=== PATIENT | female | born 1975 | race Caucasian/White ===

== ENCOUNTER 2024-12-10 21:52 | Emergency (ER) | payer BC ==
[~2024-12-10] VITALS: Ht 167.6 cm; Wt 80.7 kg
[2024-12-10] MEDS ORDERED: CEFTRIAXONE 1GM BAG (ER ONLY) 50 ML IV ONE (23:02)
[2024-12-10] MEDS ORDERED: ONDANSETRON HCL/PF 4 MG/2 ML VIAL ONE (23:02)
[2024-12-10] MEDS ORDERED: MORPHINE SULFATE INJ 4 MG/ML DISP.SYRIN ONE (23:03)
[2024-12-10] MEDS: IV NS 0.9% 1,000 ML BAG IV ONE (23:14)
[2024-12-10] MEDS: CEFTRIAXONE 1GM BAG (ER ONLY) 1 GM/50 ML PIGGYBACK IV ONE (23:15)
[2024-12-10] MEDS: ONDANSETRON HCL/PF 4 MG/2 ML VIAL IVP ONE (23:15)
[2024-12-10] MEDS: MORPHINE SULFATE INJ 2 MG/ML DISP.SYRIN IV ONE (23:15)
[2024-12-10 23:17] LABS: PLATELET COUNT (AUTO) 243 K/uL (150-450); RED BLOOD CELL COUNT(AUTO) 5.04 MIL/uL (4.0-5.2); RED CELL DISTRIBUTION WIDTH 15.4 % (11.5-15.0); WHITE BLOOD COUNT (AUTO) 13.3 K/uL (4.3-11.0)
[2024-12-10 23:37] LABS: INR 1.12 (0.91-1.10)
[2024-12-10 23:38] LABS: CALCIUM, SERUM 8.9 mg/dL (8.5-10.1); CREATININE 1.2 mg/dL (0.6-1.3); SODIUM SERUM 135 mmol/L (136-145); UREA NITROGEN, BLOOD 12 mg/dL (7-18)
[2024-12-10 23:43] LABS: ASPARTATE AMINOTRANSFERASE 136 U/L (15-37); TOTAL PROTEIN, SERUM 7.5 g/dL (6.4-8.2)
[2024-12-10 23:47] LABS: LACTIC ACID 1.9 mmol/L (0.4-2.0)
[2024-12-10 23:57] LABS: APPEARANCE,URINE CLEAR (CLEAR); BLOOD, URINE 3+ Ery/uL (NEGATIVE); LEUKOCYTE ESTERASE ,URINE NEGATIVE (NEGATIVE); NITRITE, URINE NEGATIVE (NEGATIVE); PREGNANCY TEST URINE QUAL NEGATIVE (NEGATIVE); UGLUCOSE NEGATIVE (NEGATIVE)
[2024-12-10 23:58] LABS: ADD URINE CULTURE NO; SQUAMOUS EPITHELIAL CELL,UR Few /HPF (None Seen)
[2024-12-11 01:22] VITALS: BP 107/59; TEMP 98.6; O2SAT 98
== END 2024-12-11 01:23 | disposition home or self-care (01) ==
LOC: ER 22:01
DX: K76.9 Liver disease, unspecified (principal); R74.01 Elevation of levels of liver transaminase levels; R10.9 Unspecified abdominal pain; Z60.2 Problems related to living alone
CPT/HCPCS: 99285; 74176; 96365; 71045; 96361; 96375; 93005; 84145; 85025; 80048; 87040 ×2; 87086; 83605; 80076; 84703; 81001; 36415; 84484; 85730; J2405; J7040; J0696; J2270

== ENCOUNTER 2025-01-22 19:18 | Inpatient (IN) | payer BC ==
[~2025-01-22] VITALS: Ht 167.6 cm; Wt 82.6 kg
[2025-01-22] MEDS ORDERED: ACETAMINOPHEN ES 500 MG TABLET ONE ×2 (20:14→20:17)
[2025-01-22] MEDS ORDERED: CEFEPIME 1 GM VIAL ONE (20:14)
[2025-01-22] MEDS: IV NS 0.9% 1,000 ML BAG IV ONE (20:20)
[2025-01-22] MEDS: ACETAMINOPHEN ES 500 MG TABLET PO ONE (20:20)
[2025-01-22 20:21] LABS: PLATELET COUNT (AUTO) 331 K/uL (150-450); RED BLOOD CELL COUNT(AUTO) 5.06 MIL/uL (4.0-5.2); RED CELL DISTRIBUTION WIDTH 16.0 % (11.5-15.0); WHITE BLOOD COUNT (AUTO) 17.2 K/uL (4.3-11.0)
[2025-01-22] MEDS: CEFEPIME 1 GM in IV D5W 50 ML IV ONE (20:25)
[2025-01-22 20:28] LABS: APPEARANCE,URINE SLIGHTLY CLOUDY (CLEAR); BLOOD, URINE 2+ Ery/uL (NEGATIVE); LEUKOCYTE ESTERASE ,URINE NEGATIVE (NEGATIVE); NITRITE, URINE NEGATIVE (NEGATIVE); UGLUCOSE NEGATIVE (NEGATIVE)
[2025-01-22 20:36] LABS: CALCIUM, SERUM 9.1 mg/dL (8.5-10.1); CREATININE 1.0 mg/dL (0.6-1.3); SODIUM SERUM 135 mmol/L (136-145); UREA NITROGEN, BLOOD 14 mg/dL (7-18)
[2025-01-22 20:37] LABS: INR 1.03 (0.91-1.10)
[2025-01-22 20:40] LABS: ASPARTATE AMINOTRANSFERASE 18 U/L (15-37); TOTAL PROTEIN, SERUM 7.5 g/dL (6.4-8.2)
[2025-01-22 20:42] LABS: ADD URINE CULTURE NO; SQUAMOUS EPITHELIAL CELL,UR Moderate /HPF (None Seen)
[2025-01-22 20:44] LABS: LACTIC ACID 2.5 mmol/L (0.4-2.0)
[2025-01-22 22:00] VITALS: BP 94/61; TEMP 98.1; O2SAT 97
[2025-01-22] MEDS ORDERED: TEMAZEPAM 15 MG CAPSULE PO PRN (22:30)
[2025-01-22] MEDS ORDERED: HYDROCODONE/APAP 5/325MG TABLET PO PRN (22:30)
[2025-01-22] MEDS ORDERED: MAG HYDROX/AL HYDROX/SIMETH 30 ML UDC PO PRN (22:30)
[2025-01-22] MEDS ORDERED: DEXTROSE 50%-WATER 50 ML DISP.SYRIN IV PRN (22:30)
[2025-01-22] MEDS ORDERED: Z GUARD REMEDY 4 OZ OINT TP PRN (22:30)
[2025-01-22] MEDS ORDERED: ONDANSETRON HCL/PF 4 MG/2 ML VIAL IVP PRN (22:30)
[2025-01-22] MEDS ORDERED: MAGNESIUM HYDROXIDE 30 ML UDC PO PRN (22:30)
[2025-01-22] MEDS ORDERED: ACETAMINOPHEN 325 MG TABLET PO PRN (22:30)
[2025-01-23] MEDS: IV NS 0.9% 1,000 ML IV PRN (03:50)
[2025-01-23 04:00] VITALS: BP 105/61; TEMP 99; O2SAT 98
[2025-01-23 07:07] LABS: PLATELET COUNT (AUTO) 285 K/uL (150-450); RED BLOOD CELL COUNT(AUTO) 4.18 MIL/uL (4.0-5.2); RED CELL DISTRIBUTION WIDTH 15.7 % (11.5-15.0); WHITE BLOOD COUNT (AUTO) 12.6 K/uL (4.3-11.0)
[2025-01-23 07:30] LABS: CALCIUM, SERUM 8.2 mg/dL (8.5-10.1); CREATININE 0.8 mg/dL (0.6-1.3); PHOSPHORUS 3.1 mg/dL (2.5-4.9); SODIUM SERUM 138.0 mmol/L (136-145); UREA NITROGEN, BLOOD 8.0 mg/dL (7-18)
[2025-01-23] MEDS: BLOOD SUGAR DIAGNOSTIC 1 EACH STRIP IN SCH (07:40)
[2025-01-23 08:00] VITALS: BP 93/62; TEMP 98.4; O2SAT 96
[2025-01-23] MEDS: CEFEPIME 1 GM in IV D5W 50 ML IV SCH (08:31)
[2025-01-23] MEDS: PANTOPRAZOLE 40 MG TABLET.DR PO SCH (08:31)
[2025-01-23] MEDS ORDERED: MOUNJARO SQ (08:33)
[2025-01-23] MEDS ORDERED: ATOR40TA PO (08:33)
[2025-01-23] MEDS ORDERED: METF-442 PO (08:33)
[2025-01-23] MEDS: MAGNESIUM OXIDE 400 MG TABLET PO ONE (09:51)
[2025-01-23 16:00] VITALS: BP 101/66; TEMP 97.3; O2SAT 96
[2025-01-23 20:00] VITALS: BP 105/66; TEMP 98.4; O2SAT 98
[2025-01-24 04:00] VITALS: BP 96/70; TEMP 98.1; O2SAT 98
[2025-01-24 07:09] LABS: PLATELET COUNT (AUTO) 244 K/uL (150-450); RED BLOOD CELL COUNT(AUTO) 3.85 MIL/uL (4.0-5.2); RED CELL DISTRIBUTION WIDTH 15.4 % (11.5-15.0); WHITE BLOOD COUNT (AUTO) 5.0 K/uL (4.3-11.0)
[2025-01-24 07:35] LABS: CALCIUM, SERUM 8.1 mg/dL (8.5-10.1); CREATININE 0.8 mg/dL (0.6-1.3); SODIUM SERUM 143.0 mmol/L (136-145); UREA NITROGEN, BLOOD 7.0 mg/dL (7-18)
[2025-01-24 07:43] LABS: LACTIC ACID 0.7 mmol/L (0.4-2.0)
[2025-01-24 07:54] LABS: PHOSPHORUS 2.7 mg/dL (2.5-4.9)
[2025-01-24 08:00] VITALS: BP 98/71; TEMP 97.7; O2SAT 98
[2025-01-24] MEDS: INSULIN REGULAR, HUMAN 100 UNIT/ML 3 ML VIAL SQ PRN (11:58)
[2025-01-24 16:00] VITALS: BP 93/59; TEMP 98.2; O2SAT 98
[2025-01-24 20:00] VITALS: BP 99/66; TEMP 97.2; O2SAT 97
[2025-01-25 04:00] VITALS: BP 107/70; TEMP 97.9; O2SAT 98
[2025-01-25 07:51] LABS: PLATELET COUNT (AUTO) 256 K/uL (150-450); RED BLOOD CELL COUNT(AUTO) 3.70 MIL/uL (4.0-5.2); RED CELL DISTRIBUTION WIDTH 15.2 % (11.5-15.0); WHITE BLOOD COUNT (AUTO) 5.1 K/uL (4.3-11.0)
[2025-01-25 08:02] LABS: CALCIUM, SERUM 8.9 mg/dL (8.5-10.1); CREATININE 0.8 mg/dL (0.6-1.3); SODIUM SERUM 143.0 mmol/L (136-145); UREA NITROGEN, BLOOD 10.0 mg/dL (7-18)
[2025-01-25 08:04] VITALS: BP 113/77; TEMP 97.7; O2SAT 98
[2025-01-25] MEDS ORDERED: CIPR500T5 PO (11:52)
== END 2025-01-25 14:20 | disposition home or self-care (01) | DRG 872 ==
LOC: ER 19:19 → MEDSG1 21:40
PROVIDERS: ADMIT Nurse Practitioner Acute Care; ATTEND Nurse Practitioner Acute Care
DX: A41.9 Sepsis, unspecified organism (principal); E87.20 Acidosis, unspecified; E66.9 Obesity, unspecified; B96.89 Other specified bacterial agents as the cause of diseases classified elsewhere; E78.5 Hyperlipidemia, unspecified; Z68.31 Body mass index [BMI] 31.0-31.9, adult; Z86.018 Personal history of other benign neoplasm; E11.9 Type 2 diabetes mellitus without complications; Z87.440 Personal history of urinary (tract) infections; N30.91 Cystitis, unspecified with hematuria; Z86.19 Personal history of other infectious and parasitic diseases; Z79.84 Long term (current) use of oral hypoglycemic drugs
CPT/HCPCS: 36415; 80048-TC; 80076-TC; 81001; 82962-TC; 83605-TC; 83735-TC; 84100-TC; 84443-TC; 84702-TC; 85025-TC; 85730-TC; 87040-TC; 87086-TC; A4223; G0378; J0692; J1815; J7030; J7060